=== PATIENT | female | born 1990 | race American Indian/Alaskan Native ===

== ENCOUNTER 2016-10-06 15:43 | Emergency (ER) | payer SELFPAY ==
[2016-10-06 16:22] VITALS: BP 144/93
[2016-10-06 17:00] LABS: Basophils % (Auto) 0.3 % (0.0-1.8); Eosinophils % (Auto) 1.3 % (0.0-4.3); Hematocrit 34.6 % (30.3-42.9); Hemoglobin 10.8 gm/dl (10.1-14.3); Mean Corpuscular HGB Conc 31 % (30-34); Mean Corpuscular Volume 73 fl (79-97); Platelet Count 378 K/mm3 (140-440); Red Blood Count 4.77 M/mm3 (3.65-5.03); Red Cell Distribution Width 16.9 % (13.2-15.2); White Blood Count 15.8 K/mm3 (4.5-11.0)
[2016-10-06 17:06] LABS: Mean Corpuscular Hemoglobin 23 pg (28-32)
[2016-10-06 17:13] LABS: Anion Gap 17 mmol/L; Blood Urea Nitrogen 10 mg/dL (7-17); Carbon Dioxide 23 mmol/L (22-30); Chloride 100.8 mmol/L (98-107); Glucose 104 mg/dL (65-100); Potassium 4.1 mmol/L (3.6-5.0); Sodium 137 mmol/L (137-145)
--- NOTE | 2016-10-07 07:22 | ED Elopement Review ---
ED Pt Elopement review - Results review Lab results: Laboratory Tests 10/06/16 10/06/16 10/06/16 16:25 16:25 17:29 WBC 15.8 H RBC 4.77 Hgb 10.8 Hct 34.6 MCV 73 L MCH 23 L MCHC 31 RDW 16.9 H Plt Count 378 Lymph % (Auto) 16.9 Coke % (Auto) 6.4 Eos % (Auto) 1.3 Baso % (Auto) 0.3 Lymph # 2.7 Coke # 1.0 H Eos # 0.2 Baso # 0.0 Seg Neutrophils % 75.1 H Seg Neutrophils # 11.9 H Sodium 137 Potassium 4.1 Chloride 100.8 Carbon Dioxide 23 Anion Gap 17 BUN 10 Creatinine 0.5 L Estimated GFR > 60 BUN/Creatinine Ratio 20.00 Glucose 104 H Calcium 9.0 Urine HCG, Qual Negative - Call Back decision Pt Call Back Decision: Pt to F/U with PMD (infacted legs leukocytosis)
== END 2016-10-06 18:47 | disposition left against medical advice (07) ==
LOC: ED 15:43
DX: R60.0 Localized edema (principal); Z53.21 Procedure and treatment not carried out due to patient leaving prior to being seen by health care provider
CPT/HCPCS: 36415; 80048; 81025; 85025